=== PATIENT | male | born 2000 | race Two or more races ===

== ENCOUNTER 2022-10-01 12:41 | Emergency (ER) | payer OTHER ==
[~2022-10-01] VITALS: Ht 175.3 cm; Wt 87.0 kg
[2022-10-01 13:05] VITALS: BP 123/78
== END 2022-10-01 13:44 | disposition home or self-care (01) ==
LOC: ER 12:41
DX: Z20.1 Contact with and (suspected) exposure to tuberculosis (principal); J45.909 Unspecified asthma, uncomplicated; M19.90 Unspecified osteoarthritis, unspecified site